=== PATIENT | female | born 1940 | race Caucasian/White ===

== ENCOUNTER → 2017-02-17 | Outpatient (CLI) | payer OTHER ==
[~2017-02-17] VITALS: Ht 167.6 cm; Wt 66.7 kg
[~2017-02-17] MED LIST: ADULT LOW DOSE81 MG PO; AMITRIPTYLINE; AMITRIPTYLINE H25 M2 PO; AMITRIPTYLINE H25 M2 RECTAL; AMITRIPTYLINE H25 M3 PO; AMITRIPTYLINE H50 M2 PO; ASACOL; B COMPLEX1 EAC1 PO; CALCIUM 500 +1 EAC5 PO; CENTRUM SILVER1 EAC4 PO; FENTANYL PATCH75 MCG; FLEXERIL; FOLBIC RF TABL1 EACH PO; GABAPENTIN; GABAPENTIN PO; HYDROCODON-ACE1 EAC8 PO; HYDROCODONE-AP1 EA11 PO; K-DUR 20 MEQ T20 MEQ; KEPPRA 500 MG500 M1 PO; LASIX 20 MG TAB20 MG PO; LASIX 40 MG TAB40 M1; LORTAB 5 MG/5001 TA1 PO; MAGNESIUM; MAGNESIUM OXID400 MG PO; MELATONIN10 M1 PO; METHADONE HCL5 MG PO; MORPHINE SULFAT15 M3 PO; MS CONTIN15 MG PO; MS CONTIN30 MG PO; MUCINEX600 MG PO; NEURONTIN 300300 M1 PO; NEURONTIN600 MG PO; PHENERGAN 25 MG25 M1 PO; PRILOSEC 20 MG20 MG; PROPRANOLOL 20M20 M1 PO; PROZAC; PROZAC 20 MG20 MG PO; PROZAC10 MG PO; REMERON15 MG PO; SPIRIVA; TAGAMET HB200 MG PO; VICODIN; WELLBUTRIN SR150 MG; WELLBUTRIN SR150 MG PO; XANAX 0.5 MG0.5 MG PO; ZOCOR 10 MG TAB10 M1 PO; [UNRECOGNIZED DRUG - OTHER]; [UNRECOGNIZED DRUG - OTHER] PO
--- NOTE | ~2017-02-17 | HPC ---
[facility] [place] [address] PAIN MANAGEMENT CONSULTATION Name: JOSÉSUN DIANESY JOHN Room #: REG OSEAS Damico#: [id number] Admission: 02/17/17 Attend Phys: Mane Riggs DO Discharge: Date of : 38 Report #: [id number] THIS REPORT FOR: //name// CC: Cm Riggs The patient is a 76-year-old female, typically treated by Dr. Tae Pacheco for chronic pain syndrome, requiring complex medication management. She has been stable on 90 mg of morphine a day for quite some time and MS Contin 30 mg t.i.d. She suffers from lumbar radiculopathy with arachnoiditis by history, neuropathic pain requiring complex medication management. She has aggressively weaned down to MS Contin 15 mg t.i.d. at last visit 09/30/2016, she was subsequently weaned that dose down to 15 mg MS Contin b.i.d. She returns to pain clinic today. She was started on Remeron at last visit to help with some insomnia. This did not help and caused some cognitive impairment and "hangover type feeling." She self-discontinued it. She returns to pain clinic today noting pain is 4/10. It is episodic 3-4 times a day, typically exacerbated with some activity, mid back, right a little greater than the left. The patient is desirous of continuing her opiate wean. PHYSICAL EXAMINATION: Shows a 76-year-old female, BMI is 23.7 kg/m2. Vital signs show modest systolic hypertension, 174/72, pulse 72, respirations 16. Alert and oriented to person, place, and time, judged to be a reasonable historian, seen in the company of her who is supportive. Subjective pain across the low back, right greater than left leg. Rises from the chair using armrest. Gait is nominally antalgic. Lower extremity strength is generally symmetric. Diffuse tenderness across the low back. No discrete trigger points are noted. We reviewed the fact that opiate medications are being used to provide analgesia adequate to support activities of daily living, not attempting to achieve a specific pain score on the 0-10 Visual Analog Scale. The current opiate medications are providing sufficient analgesia to allow the patient to participate in activities of daily living. The patient is not exhibiting any aberrant behavior suggestive of drug diversion. The patient is not having any adverse reactions to medications. The patient is not suffering from daytime somnolence or mental acuity changes. The patient is managing opiate-induced constipation with appropriate [id number]-mvt-qwbpecn agents and dietary considerations. The patient was counseled on concern for caution with operating a motor vehicle while using opiate medications. A physical exam was performed and the patient's functional status was evaluated. All patients with back pain were advised against the bed rest greater than 4 days and were advised to return to normal activities. Pain score assessment was [address] [address] PAIN MANAGEMENT CONSULTATION Name: PARADISE KUMAR JOHN Room #: REG Pal Damico#: [id number] Admission: 02/17/17 Attend Phys: Mane Riggs DO Discharge: Date of : 38 Report #: [id number] noted and the treatment plan was reviewed with the patient. All current medications, both prescribed and OTC were reviewed and reconciled on the electronic medical record. Tobacco screening was accomplished and smoking cessation was advised when indicated. BMI was noted and diet/exercise modification was recommended for all patients following outside normal parameters. I reviewed with the patient today their responsibilities to safeguard prescription medications, reviewed their responsibility to utilize medications only as prescribed by the physician. They are to seek and receive pain medications only from 1 physician group ( [facility]). They are to use 1 pharmacy and keep the clinic informed if they change pharmacies. Their responsibilities include making followup visits in a timely fashion and to avoid abrupt discontinuation of medication usage. Their responsibilities further include bringing their medications (bottles from the pharmacy with residual pills) to the visit for possible confirmation of pill counts and the patient understands it is their responsibility to submit to random drug screens to ensure both that the medications prescribed are present, and that no other controlled substances are present. All prescriptions provided today were generated electronically. ASSESSMENT: Symptomatic lumbar radiculopathy status post decompressive laminectomy with neuropathic pain component in a very pleasant 76-year-old female, desirous of weaning off of opiates altogether. Today, we discussed at length moving forward. She is currently taking 30 mg of morphine a day, MS Contin 15 mg b.i.d. I suggest she continue with MS Contin 15 mg 1 a day. I have taken the liberty of writing for 20 morphine sulfate immediately release 15 mg tablets. Suggest she take one half tablet at bedtime for 10-14 nights and then discontinue. At the end of the 3- days, we will have her start taking one half MS IR in the morning and/or b.i.d. as needed for breakthrough pain. Follow up with Dr. Tae Pacheco simply as needed. If she finds a certain minimum level of opiate analgesics her functional status decreases, we will simply use that as her baseline opiate requirement. Thank you for allowing me to participate in the patient's care. By: [id number] Mane Riggs DO /nt
[2017-02-17 11:31] VITALS: BP 174/72
== END ==
LOC: PAIN 07:46
DX: M54.16 Radiculopathy, lumbar region (principal)

== ENCOUNTER → 2017-03-20 | Outpatient (CLI) | payer OTHER ==
[~2017-03-20] VITALS: Ht 167.6 cm; Wt 67.3 kg
--- NOTE | ~2017-03-20 | HPC ---
[facility] [address] [place] [address] PAIN MANAGEMENT CONSULTATION Name: PARADISE KUMAR JOHN Room #: REG MARKIEPal Damico#: [id number] Admission: 03/20/17 Attend Phys: Tae Pacheco MD Discharge: Date of : 38 Report #: [id number] THIS REPORT FOR: //name// CC: Cm Pacheco DATE OF REGISTRATION: 03/20/2017 Followup visit for lumbar radiculopathy status post laminectomy with radiculopathy. The patient returns to the pain clinic today and has done an excellent job with tapering her opioids. She is now down to 1 MS Contin per day and has no breakthrough medication. We discussed the possibility of using this to continue tapering off. Slow release is not necessarily a bad thing. We did, however realize that is she gets the MSIR she can break those in half, go to 7.5 mg, use it as a breakthrough medicine as needed and possibly taper completely off opioids. That is what she plans to do and a prescription was written for 60 tablets in order for her to be able to do so. We talked about withdrawal from even such a small amount of opioid. I have reminded her that she may have increases in bowel function, perhaps a little edginess. Occasionally people feel emotionally down even pulling off a small dose of narcotics, which they have been on for some time. This should pass over time. We talked a little bit about elevation of blood pressure and jitters, but she has done well so far, I think she will do fine coming off completely if she would like to do so. Despite her reduction she is still in pain and she understands that some pain is to be expected. She scores it as a 5/10 and this is something that she is able to function well with. PHYSICAL EXAMINATION: Her blood pressure is 143/72, heart rate 75. BMI is 24. She is able to move easily from sitting to standing position and ambulate without antalgic features. Her mentation is clear and thought process is clear as well. IMPRESSION: 1. Chronic low back pain. 2. Management of high risk medication. Prescription provided for 60 tablets of MSIR 15 mg, followup visit scheduled as needed. This may last her anywhere from 2 to 5 months, or she may not need to [address] [address] PAIN MANAGEMENT CONSULTATION Name: PARADISE KUMAR JOHN Room #: REG OSEAS Damico#: [id number] Admission: 03/20/17 Attend Phys: Tae Pacheco MD Discharge: Date of : 38 Report #: [id number] come back at all! That would be the best of all worlds if she was able to completely taper off opioids, in that case, we would see her only as needed. By: [id number] Tae Pacheco MD /nt
[2017-03-20 10:53] VITALS: BP 143/72
== END | disposition home or self-care (01) ==
LOC: PAIN 03-14 06:15
DX: M54.16 Radiculopathy, lumbar region (principal); F11.90 Opioid use, unspecified, uncomplicated; M54.5 Low back pain; Z87.891 Personal history of nicotine dependence